=== PATIENT | female | born 1980 | race Caucasian/White ===

== ENCOUNTER 2024-10-18 02:15 | Emergency (ER) | payer MEDICAID ==
[~2024-10-18] VITALS: Ht 157.5 cm; Wt 70.0 kg
[2024-10-18 02:27] VITALS: BP 147/92; PULSE 108; RESP 16; TEMP 97.8; O2SAT 98
[2024-10-18] MEDS: METOCLOPRAMIDE HCL 10MG/2ML VIAL IV ONE (02:30)
[2024-10-18 03:23] LABS: BASOPHILS % 0.5 % (0.0-2.0); EOSINOPHILS % 7.1 % (0.0-5.0); HEMATOCRIT. 38.5 % (36.0-48.0); LYMPHOCYTES % 24.6 % (20.0-50.0); MEAN CORPUSCULAR HEMOGLOBIN 29.5 pg (28.0-32.0); MEAN CORPUSCULAR HGB CONC 33.7 g/dL (31.0-37.0); MEAN CORPUSCULAR VOLUME 87.5 fL (81.0-99.0); MEAN PLATELET VOLUME 9.3 fl (7.4-10.4); MONOCYTES % 5.7 % (2.0-8.0); NEUTROPHILS % 62.1 % (40.0-76.0); PLATELET 249 x1000/uL (130-400); RED CELL DISTRIBUTION WIDTH 13.7 % (11.6-14.6); WHITE BLOOD COUNT 9.8 x1000/uL (4.5-11.0)
[2024-10-18 03:30] LABS: CHLORIDE 107 mEq/L (98-107); POTASSIUM 3.6 mEq/L (3.5-5.1); SODIUM 140 mEq/L (136-145)
[2024-10-18 03:31] LABS: CALCIUM 9.5 mg/dL (8.7-10.4); CARBON DIOXIDE 26 mEq/L (21-32)
[2024-10-18 03:36] LABS: CREATININE 0.8 mg/dL (0.6-1.0); GLUCOSE 95 mg/dL (70-105); UREA NITROGEN BLOOD 12 mg/dL (9-23)
[2024-10-18 03:42] LABS: HCG SCREEN NEGATIVE
[2024-10-18 03:54] LABS: ETHANOL BLOOD < 10 mg/dL (<10)
[2024-10-18] MEDS ORDERED: ACET-2708 MT (05:20)
[2024-10-18] MEDS ORDERED: METO-293 MT (05:20)
[2024-10-18] MEDS: METOCLOPRAMIDE HCL 10MG/2ML VIAL IV NR (07:12)
[2024-10-18] MEDS: ACETAMINOPHEN 1000MG/100ML 100 ML IV ONE (07:12)
== END 2024-10-18 07:44 | disposition home or self-care (01) ==
LOC: ER 02:15
DX: G44.209 Tension-type headache, unspecified, not intractable (principal); F32.A Depression, unspecified
CPT/HCPCS: 80048; 80320; 84703; 85025; 36415; 70450; 93005; 96374; 96375; 99285; J2765; G0480; J0131